=== PATIENT | female | born 1995 | race Caucasian/White ===

== ENCOUNTER 2016-09-05 09:33 | Emergency (ER) | payer MEDICAID ==
[~2016-09-05] VITALS: Ht 162.6 cm; Wt 70.5 kg
[2016-09-05] MEDS ORDERED: SODIUM CHLORIDE 0.9% 1,000ML IVBOLUS ONE (11:00)
[2016-09-05] MEDS ORDERED: FAMOTIDINE 20 MG/2 ML IVP ONE (11:00)
[2016-09-05] MEDS ORDERED: SODIUM CHLORIDE FLUSH 10ML SYR IVF ONE (11:00)
[2016-09-05] MEDS ORDERED: ONDANSETRON 2MG/ML, 2ML IVPush ONE (11:00)
[2016-09-05] MEDS ORDERED: ONDANSETRON 2MG/ML, 2ML ONE (11:11)
[2016-09-05] MEDS ORDERED: FAMOTIDINE 20 MG/2 ML ONE (11:11)
[2016-09-05 11:12] LABS: ASPARTATE AMINO TRANSFERASE 7 U/L (15-37); BLOOD UREA NITROGEN 8 mg/dL (7-18)
[2016-09-05 12:09] VITALS: BP 108/60
== END 2016-09-05 12:17 | disposition home or self-care (01) ==
LOC: ED 11:35
DX: O21.0 Mild hyperemesis gravidarum (principal); Z3A.01 Less than 8 weeks gestation of pregnancy
CPT/HCPCS: 36415; 80053; 81001; 83690; 85025; 96361; 96374; 96375; 99284; J2405; J7030; S0028

== ENCOUNTER 2016-11-20 16:50 | Emergency (ER) | payer MEDICAID ==
[~2016-11-20] VITALS: Ht 162.6 cm; Wt 72.0 kg
[2016-11-20 16:52] VITALS: BP 132/62
== END 2016-11-20 17:28 | disposition home or self-care (01) ==
LOC: ED 17:20
DX: O9A.212 Injury, poisoning and certain other consequences of external causes complicating pregnancy, second trimester (principal); S30.1XXA Contusion of abdominal wall, initial encounter; Z3A.18 18 weeks gestation of pregnancy; W01.0XXA Fall on same level from slipping, tripping and stumbling without subsequent striking against object, initial encounter; Y93.89 Activity, other specified; Y92.69 Other specified industrial and construction area as the place of occurrence of the external cause; Y99.8 Other external cause status
CPT/HCPCS: 99284

== ENCOUNTER 2016-12-26 03:48 | Emergency (ER) | payer MEDICAID ==
[~2016-12-26] VITALS: Ht 162.6 cm; Wt 82.5 kg
[2016-12-26 03:49] VITALS: BP 119/76
== END 2016-12-26 04:12 | disposition home or self-care (01) ==
LOC: ED 04:00
DX: O26.892 Other specified pregnancy related conditions, second trimester (principal); K02.9 Dental caries, unspecified; Z3A.24 24 weeks gestation of pregnancy; Z90.49 Acquired absence of other specified parts of digestive tract; Z88.8 Allergy status to other drugs, medicaments and biological substances
CPT/HCPCS: 99282

== ENCOUNTER 2017-01-15 19:23 | Outpatient (CLI) | payer MEDICAID ==
[~2017-01-15] VITALS: Ht 162.6 cm; Wt 83.2 kg
[2017-01-15 20:17] VITALS: BP 116/61
== END 2017-01-15 21:08 | disposition home or self-care (01) ==
LOC: LDOP 19:23
PROVIDERS: ATTEND Obstetrics & Gynecology Maternal & Fetal Medicine
DX: O36.8120 Decreased fetal movements, second trimester, not applicable or unspecified (principal); O42.912 Preterm premature rupture of membranes, unspecified as to length of time between rupture and onset of labor, second trimester; Z3A.27 27 weeks gestation of pregnancy
CPT/HCPCS: 59025; 81001; 87086; 89060; 99211; G0463; Q0114

== ENCOUNTER 2017-03-28 15:21 | Outpatient (CLI) | payer MEDICAID ==
[~2017-03-28] VITALS: Ht 162.6 cm; Wt 91.5 kg
[2017-03-28 16:27] VITALS: BP 130/64
[2017-03-28 16:34] LABS: AMNI OBC PASS; AMNISURE NEGATIVE (NEGATIVE)
== END 2017-03-28 17:16 | disposition home or self-care (01) ==
LOC: LDOP 15:21
PROVIDERS: ATTEND Obstetrics & Gynecology Maternal & Fetal Medicine
DX: O26.893 Other specified pregnancy related conditions, third trimester (principal); O62.9 Abnormality of forces of labor, unspecified; R10.9 Unspecified abdominal pain; Z3A.36 36 weeks gestation of pregnancy
CPT/HCPCS: 59025; 81001; 84112; 99211; G0463

== ENCOUNTER 2017-04-10 11:30 | Outpatient (CLI) | payer MEDICAID ==
[~2017-04-10] VITALS: Ht 162.6 cm; Wt 92.7 kg
[2017-04-10 12:15] LABS: MICROSCOPIC INDICATED
== END 2017-04-10 13:33 ==
LOC: LDOP 11:30
PROVIDERS: ATTEND Obstetrics & Gynecology Maternal & Fetal Medicine
DX: O26.893 Other specified pregnancy related conditions, third trimester (principal); R10.9 Unspecified abdominal pain; Z3A.39 39 weeks gestation of pregnancy
CPT/HCPCS: 59025; 81001; 87086; 99211; G0463

== ENCOUNTER 2017-04-11 10:48 | Outpatient (CLI) | payer MEDICAID ==
[~2017-04-11] VITALS: Ht 162.6 cm; Wt 92.7 kg
[2017-04-11 11:21] LABS: MICROSCOPIC INDICATED
[2017-04-11 11:25] VITALS: BP 129/64
[2017-04-11 12:24] LABS: AMNISURE NEGATIVE (NEGATIVE)
== END 2017-04-11 12:44 | disposition home or self-care (01) ==
LOC: LDOP 10:48
PROVIDERS: ATTEND Obstetrics & Gynecology Maternal & Fetal Medicine
DX: O42.92 Full-term premature rupture of membranes, unspecified as to length of time between rupture and onset of labor (principal); O26.893 Other specified pregnancy related conditions, third trimester; R51 Headache; R11.2 Nausea with vomiting, unspecified; Z3A.38 38 weeks gestation of pregnancy
CPT/HCPCS: 59025; 81001; 84112; 87086; 99211; G0463

== ENCOUNTER 2017-04-11 19:41 | Outpatient (CLI) | payer MEDICAID ==
[~2017-04-11] VITALS: Ht 162.6 cm; Wt 92.7 kg
[2017-04-11 19:49] VITALS: BP 130/62
== END 2017-04-11 20:25 | disposition home or self-care (01) ==
LOC: LDOP 19:41
PROVIDERS: ATTEND Obstetrics & Gynecology Maternal & Fetal Medicine
DX: O12.03 Gestational edema, third trimester (principal); R51 Headache; Z3A.38 38 weeks gestation of pregnancy
CPT/HCPCS: 59025; 99211; G0463

== ENCOUNTER → 2019-11-07 | Outpatient (CLI) | payer MEDICAID | END | disposition home or self-care (01) | LOC: CFH 13:26 | PROVIDERS: ATTEND Physician Assistant | DX: M54.2 Cervicalgia (principal) | CPT/HCPCS: 76536 ==

== ENCOUNTER 2020-07-12 14:37 | Outpatient (CLI) | payer MEDICAID, OTHER ==
[~2020-07-12 14:37] MED LIST: LIDOCAINE-MPF 1%, 5ML ONE; ROPivacaine/PF 0.2%, 10 ML ONE; SODIUM BICARBONATE 4.2%, 5ML ONE
[2020-07-12] MEDS ORDERED: OMNIPAQUE 300 MG/ML, 10ML VIAL ONE (15:00)
[2020-07-12] MEDS ORDERED: GADOTERATE 5 MMOL/10 ML VIAL ONE (15:00)
== END 2020-07-12 23:59 | disposition home or self-care (01) ==
LOC: RAD 14:37
PROVIDERS: ATTEND Orthopaedic Surgery Adult Reconstructive Orthopaedic Surgery
DX: M25.551 Pain in right hip (principal)
CPT/HCPCS: 27093; 73525; 73722; A9575; J2795; Q9967

== ENCOUNTER 2020-12-03 13:09 | Outpatient (CLI) | payer MEDICAID ==
[2020-12-03] MEDS ORDERED: LIDOCAINE 1%, 10ML ONE (13:38)
[2020-12-03] MEDS ORDERED: ROPivacaine/PF 0.2%, 10 ML ONE ×2 (13:38→14:29)
[2020-12-03] MEDS ORDERED: OMNIPAQUE 350 MG/ML, 50 ML BOTTLE ONE (14:00)
[2020-12-03] MEDS ORDERED: GADOTERATE 5 MMOL/10 ML VIAL ONE (14:00)
== END 2020-12-03 23:59 | disposition home or self-care (01) ==
LOC: RAD 13:09 → EDSTATUS 14:00 → RAD 23:59
PROVIDERS: ATTEND Orthopaedic Surgery Adult Reconstructive Orthopaedic Surgery
DX: M25.852 Other specified joint disorders, left hip (principal)
CPT/HCPCS: 27093; 73525; 73722; A9575; J2795; J3490; Q9967